=== PATIENT | female | born 1975 | race Two or more races ===

== ENCOUNTER 2018-08-23 09:08 | Emergency (ER) | payer BC ==
[~2018-08-23] VITALS: Ht 170.2 cm; Wt 59.0 kg
--- NOTE | 2018-08-23 09:20 | NUR ---
BIB SELF, WITH C/O SEVERE LOWER ABDOMINAL PAIN, CRAMPING PAIN. PT EXTREMELY ANXIOUS, TO ER BED 4, HOOKED TO MONITOR, AWAITING MD PARRA.
[2018-08-23] MEDS ORDERED: HYDROMORPHONE INJ 0.5 MG/0.5 ML SYRINGE IV ONE (09:30)
[2018-08-23] MEDS ORDERED: IV NS 0.9% 1,000 ML BAG IV ONE (09:30)
[2018-08-23] MEDS ORDERED: HYDROMORPHONE 1 MG/1 ML DISP.SYRIN ONE (09:31)
[2018-08-23 09:46] LABS: BASOPHILS # (AUTO) 0.1 /CMM (0.0-0.2); BASOPHILS % (AUTO) 0.5 % (0.0-2.0); EOSINOPHILS % (AUTO) 0.8 % (0.0-6.0); HEMATOCRIT 30 % (33-45); HEMOGLOBIN 9.5 g/dL (11.5-14.8); LYMPHOCYTES # (AUTO) 1.8 /CMM (0.8-4.8); LYMPHOCYTES % (AUTO) 13.4 % (20.0-44.0); MEAN CORPUSCULAR HGB CONC 32 g/dl (31.0-36.0); MEAN CORPUSCULAR VOLUME 72 fL (82-100); MONOCYTES # (AUTO) 0.9 /CMM (0.1-1.30); MONOCYTES % (AUTO) 6.9 % (2.0-12.0); NEUTROPHILS # (AUTO) 10.4 /CMM (1.8-8.9); NEUTROPHILS % (AUTO) 78.4 % (43.0-81.0); PLATELET COUNT (AUTO) 307 /CMM (150-450); RED BLOOD CELL COUNT(AUTO) 4.17 MIL/uL (4.0-5.2); WHITE BLOOD COUNT (AUTO) 13.3 K/uL (4.3-11.0)
[2018-08-23 09:57] LABS: CALCIUM, SERUM 8.9 mg/dL (8.5-10.1)
[2018-08-23] MEDS ORDERED: KETOROLAC TROMETHAMINE INJ 30 MG/ML VIAL IV ONE (10:30)
--- NOTE | 2018-08-23 10:30 | NUR ---
URINE SAMPLE SENT TO LAB
--- NOTE | 2018-08-23 10:49 | NUR ---
VAGINAL SPECIMEN SUBMITTED TO LAB
[2018-08-23] MEDS ORDERED: KETOROLAC TROMETHAMINE INJ 30 MG/ML VIAL ONE (11:21)
--- NOTE | 2018-08-23 11:55 | NUR ---
IV removed. Catheter intact and site benign. Pressure and 4x4 applied to site. No bleeding noted. Patient discharged to home in stable condition. Written and verbal after care instructions given. Patient verbalizes understanding of instruction.
[2018-08-23 12:01] VITALS: BP 110/72
== END 2018-08-23 11:55 | disposition home or self-care (01) ==
LOC: ER 09:09
DX: O02.1 Missed abortion (principal)
CPT/HCPCS: 36415; 76856; 80048; 84702; 84703; 85025; 85730; 88305; 96361; 96374; 96375; 99284; A4606; J1170; J1885; J7030; Z7610